=== PATIENT | female | born 1990 | race Caucasian/White ===

== ENCOUNTER 2025-06-04 10:22 | Emergency (ER) | payer OTHER, SELFPAY ==
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
[2025-06-04 10:36] VITALS: BP 152/84; PULSE 88; RESP 18; TEMP 36.1; O2SAT 99; BMI 28.8
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
[2025-06-04 11:42] VITALS: BP 152/84; PULSE 88; RESP 18; TEMP 36.1; O2SAT 99
--- OUTSIDE RECORDS SUMMARY | 2025-06-04 15:29 | XMS_ITS | Clinical Summary ---
Author Organization [facility] Address [address] [place] [phone] Phone Care Team Providers Care Product Marketer Name Role Phone Shannon Hernandez MD Primary Care Prov ider Allergies No known active allergies Medications etonogestrel-elut ing contraceptive device (Nexplanon) 68 mg implant subdermal implant Inject 68 mg into the skin Once. 3 Active olopatadine (PATANOL) 0.1 % ophthalmic solution apply 1 Drop to the eye 2 times daily. 4 Active albuterol HFA (PROAIR HFA ; PROVENTIL HFA ; VENTOLIN HFA) 90 mcg/actuation inhalerIndication s:Seasonal allergies,Routine general medical examination at a health care facility,Encounte r for hepatitis C screening test for low risk patient,Exercise- induced asthma Inhale 2 puffs by mouth every 6 (six) hours if needed for wheezing. 6.7 g 5 Active azelastine (ASTELIN) 137 mcg (0.1 %) nasal sprayIndications: Seasonal allergies Administer 1 spray into each nostril 2 (two) times a day. Use in each nostril as directed 30 mL 5 Active fluticasone propionate (FLONASE) 50 mcg/actuation nasal sprayIndications: Seasonal allergies,Routine general medical examination at a health care facility,Encounte r for hepatitis C screening test for low risk patient,Exercise- induced asthma INSTILL 2 SPRAYS IN EACH NOSTRIL ONCE EVERY DAY; SHAKE GENTLY; BEFORE FIRST USE, PRIME PUMP; AFTER USE, CLEAN TIP 48 g 5 Active mometasone (NASONEX) 50 mcg/actuation nasal spray Administer 2 sprays into each nostril 2 (two) times a day. 51 g 1 5 Active escitalopram (LEXAPRO) 10 mg tablet Take 1 tablet (10 mg total) by mouth 1 (one) time each day. 90 each 3 5 026 Active levocetirizine (Xyzal) 5 mg tablet Take 1 tablet (5 mg total) by mouth 1 (one) time each day in the evening. 90 each 3 5 026 Active omeprazole (PriLOSEC) [address] capsule Take 1 capsule (20 mg total) by mouth 1 (one) time each day. Do not crush or chew. 90 each 3 5 026 Active azithromycin (ZITHROMAX) 250 mg tablet Take 2 tablets (500 mg total) by mouth 1 (one) time each day for 1 day, THEN 1 tablet (250 mg total) 1 (one) time each day for 4 days. 6 each 5 025 Active Problems Problem Noted Date Diagnosed Date Heartburn 04/29/2025 Menstrual migraine, with int ractable migraine, so stated, with status migrainosus 01/28/2022 Attention deficit hyperactiv ity disorder (ADHD), predominantly inattentive type 10/04/2021 LGSIL on Pap smear of cervix 08/29/2019 Overview (03/20/2024): Colpo09/05- JOSHUA 1: Pap 05/2022: LGSIL, ASC-H Colpo 09/08: JOSHUA 2 LEEP 09/30/22: JOSHUA 2 negative margins repeat pap in one year Sprain of ligament of lumbosacral joint 11/08/19 15 Overview (03/20/2024): IMO update Sprain of sacroiliac ligament 11/07/2014 Anxiety 08/07/2014 Asthma, exercise induced 08/07/2014 Encounters Date Type Department Care Team Description 04/29/2025 9:00 AM EST Office Visit [facility] [address] [place] [address] Donald Matthew PA Chronic bilateral low back pain without sciatica (Primary Dx); Anxiety; Asthma, exercise induced; Heartburn 03/10/2025 10:00 AM EDT Office Visit [facility] [address] [place] [address] Donald Matthew PA Right lumbar pain (Primary Dx) 03/07/2025 2:00 PM EDT Telemedicine [facility] [address] [place] [phone] Donald Matthew PA Anxiety and depression (Primary Dx); Premenstrual dysphoria from Last 3 Months Immunizations Immunization Administration Dates Next Due HPV, Quadrivalent 08/06/2009 Hepatitis B (Ujnhzaw-X-Bcfsk , Recombivax HB-Adult) 19yo and older 05/24/2016 Influenza Quadravalent, MDCK , 0.5ml, preservative free (Flucelvax) 6mo and older 04/06/2018 Influenza trivalent, with pr eservative (Fluzone; Afluria) 6mo and older 03/31/2015 Influenza, Unspecified 04/05/2019 Measles 05/24/2016 Moderna SARS-CoV-2 COVID-19, mRNA, LNP-S, preservative free 08/05/2020,07/08/2020 Mumps 05/24/2016 PPD Test 04/12/2017,05/25/2016,05/23/2016 Rubella 05/24/2016 Tdap Tetanus diptheria acell ular pertussis (Boostrix; Adacel) 7yo and older 05/27/2015 Varicella live (Varivax) 12mo and older 05/26/20 16,02/28/2014,03/10/2009 Zoster Live 05/24/2016 Surgical History Surgery Date Site/Laterality Comments APPENDECTOMY PROCEDURE: RI APPENDECTOMY Medical History Medical History Date Comments Tobacco abuse 01/27/2014 DX:Tobacco abuse Family History Medical History Relation Name Comments Diabetes Father Hypertension Father Stroke Maternal Grandfather Lung cancer Maternal Grandmother Hypertension Mother Suicide Attempts Paternal Grandfather Breast cancer Neg Hx Cervical cancer Neg Hx Colon cancer Neg Hx Ovarian cancer Neg Hx Pancreatic cancer Neg Hx Uterine cancer Neg Hx Relation Name Status Comments Father Alive Maternal Grandfather (Age 86) Maternal Grandmother (Age 50s) l gely ca-smoker Mother Alive Paternal Grandfather suicide Paternal Grandmother Alive Sister 1 Alive ovarian cysts Sister 2 Alive Sister 3 Alive Social History Tobacco Use Types Packs/Day Years Used Date Smoking Tobacco: Former Cigarettes 0.5 Q uit: 06/18/2017 Smokeless Tobacco: Never Tobacco Cessation:Counseling Given: Not Answered Alcohol Use Standard Drinks/Week Comments Not Currently 0 (1 standard drink = 0.6 oz pur e alcohol) Housing Instability Answer Date Recorde d Are you worried that in the next 2 months you may not have stable housing? No 12/03/2024 Food Access & Nutrition Answer Date Rec orded Do you have access to a vari ety of food including fruits and vegetables? Yes 12/03/2024 Access to Healthcare Answer Date Record ed Within the last 3 months, ho w many times did you visit the emergency department for your medical care? 0 12/03/2024 Health Literacy Answer Date Recorded How often do you need to hav e someone help you when you read instructions, pamphlets, or other written material from your doctor or pharmacy? Never 12/03/2024 Caregiver: How often do you need to have someone help you when you read instructions, pamphlets, or other written material from your doctor or pharmacy? Not on file 12/03/2024 Financial Risk Answer Date Recorded How hard is it for you to pa y for the very basics like food, housing, medical care, and air conditioning / heating? Not very hard 12/03/2024 Transportation Answer Date Recorded Has the lack of transportati on kept you from meetings, work, or from getting things needed for daily living? No Has the lack of transportati on kept you from medical appointments or from getting medications? No 12/03/2024 Social Isolation Answer Date Recorded How often do you feel lonely or isolated from th ose around you? Never 12/03/2024 Food Risk Answer Date Recorded Within the past 12 months we worried whether our food would run out before we got money to buy more. Never true 12/03/2024 Within the past 12 months th e food we bought just didn't last and we didn't have money to get more. Never true 12/03/2024 Dependent Care Answer Date Recorded Do you need help finding or paying for care for your loved ones. For example, children's program coordinator or elderly care for an older adult? No 12/03/2024 Education Answer Date Recorded Do you think completing more education or training, like finishing a GED, going to college, or learning a trade, would be helpful for you? N/A 12/03/2024 Employment and Income Answer Date Recor ded During the last four weeks, have you been actively looking for work? No 12/03/2024 Living Situation Answer Date Recorded What is your living situation? Unrecognized valu e 12/03/2024 Comments No Sex and Gender Information Value Date Recorded Sex Assigned at Not on file Legal Sex Female 2:21 AM EST Gender Identity Not on file Sexual Orientation Not on file Obstetrics History Para Term AB IAB SAB Ectopic Multiple Livin g Live Births 0 0 0 0 0 0 0 0 Last Filed Vital Signs Vital Sign Reading Time Taken Comments Blood Pressure 133/75 04/29/2025 8:56 AM EST Pulse 104 04/29/2025 8:56 AM EST Temperature 36.7 C (98 F) 03/10/2025 9:57 AM EDT Respiratory Rate 15 11/25/2024 2:17 PM EDT Oxygen Saturation - - Inhaled Oxygen Concentration - - Weight 89.1 kg (196 lb 6.4 oz) 04/29/2025 8:56 A M EST Height 175.3 cm (5' 9 ) 04/29/2025 8:56 AM EST Body Mass Index 29 04/29/2025 8:56 AM EST Plan of Treatment Upcoming Encounters Date Type Department Care Team (Late st Contact Info) Description 11/26/2025 8:30 AM EDT Office Visit [facility] [place] [address] [place] [phone] Donald Matthew PA [address] [place] [address] Health Maintenance Due Date Last Done Comments HPV Vaccines (2 - 3-dose series) 09/03/2009 08/06/2009 Hepatitis B Vaccines (2 of 3 - 19+ 3-dose series) 06/21/2016 05/24/2016 HIV Screening 05/28/2022 COVID-19 Vaccine (3 - 2024-2 6 season) 2025 08/05/2020, 07/08/2020 DTaP,Tdap,and Td Vaccines (2 - Td or Tdap) 05/27/2025 05/27/2015 Social Influencers of Health Screening 12/03/2025 12/03/2024 Cervical Cancer Screening: HPV 11/25/2029 11/25/2024, 06/14/2022 Cholesterol Screening (Lipid Panel) 11/26/2029 11/26/2024, 08/08/2022, 08/26/2019 RSV Immunization Adult Patients (1 - 1-dose 75+ series) 2067 Varicella Vaccines Aged Out 05/26/2016, 02/28/2014, 03/10/2009 No longer eligible based on patient's age to complete this topic Influenza Vaccine Discontinued 04/05/2019, 04/06/2018, 03/31/2015 Hepatitis C Screening Completed 11/26/2024 Depression Screening Completed 12/03/2024 HIB Vaccines Aged Out No longer eligi ble based on patient's age to complete this topic Hepatitis A Vaccines Aged Out No long er eligible based on patient's age to complete this topic IPV Vaccines Aged Out No longer eligi ble based on patient's age to complete this topic MMR Vaccines Aged Out No longer eligi ble based on patient's age to complete this topic Meningococcal ACWY Vaccine Aged Out N o longer eligible based on patient's age to complete this topic Meningococcal B Vaccine Aged Out No l onger eligible based on patient's age to complete this topic Pneumococcal Vaccine: Pediatrics (0 to 5 Years) and At-Risk Patients (6 to 49 Years) Discontinued RSV Immunization Patients Under 20 months Aged Out No longer eligible based on patient's age to complete this topic Procedures Procedure Name Priority Date/Time Associated Diagnosis Comments HEPATITIS C ANTIBODY Routine 11/26/2024 9:26 AM EDT Seasonal allergies Routine general medical examination at a health care facility Encounter for hepatitis C screening test for low risk patient Exercise-induced asthma LIPID PANEL WITH REFLEX TO DIRECT LDL Routine 11/26/2024 9:26 AM EDT Seasonal allergies Routine general medical examination at a health care facility Encounter for hepatitis C screening test for low risk patient Exercise-induced asthma Screening for cardiovascular condition Injury of right foot, initial encounter Screening for diabetes mellitus HPV WITH REFLEX GENOTYPE Routine 11/25/2024 1:47 PM EDT Moderate dysplasia of cervix (JOSHUA II) Encounter for annual routine gynecological examination from Last 3 Months or Most Recently Relevant to Health Maintenance Results * Hepatitis C antibody (11/26/2024 9:26 AM EDT) [facility] Hepatitis C Antibody Negative Negative LAB CHEMISTRY METHOD 11/26/2024 3:[address] [facility] Blood Venous blood specimen / Unknown Venipuncture / Unknown 11/26/2024 9:26 AM EDT 11/26/2024 9:26 AM EDT us April Goodman MD LAB BLOOD ORDERABLES F inal Result [facility] [address] [place] [address], [place] [phone] * Lipid panel with reflex to direct LDL (11/26/2024 9:26 AM EDT) [facility] Cholesterol 124 0 - 200 mg/dL LAB CHEMISTRY METHOD 11/26/2024 1:[address] [facility] Triglycerides 44 0 - 150 mg/dL LAB CHEMISTRY METHOD 11/26/2024 1:[address] [facility] HDL 50 >=40 mg/dL LAB CHEMISTRY METHOD 11/26/2024 1:[address] [facility] LDL Calculated 65 0 - 100 mg/dL LAB CHEMISTRY METHOD 11/26/2024 1:[address] [facility] VLDL Cholesterol Tyrell 8.8 mg/dL LAB CHEMISTRY METHOD 11/26/2024 1:[address] [facility] Non HDL Chol. (LDL+VLDL) 74 <145 mg/dL LAB CHEMISTRY METHOD 11/26/2024 1:[address] [facility] Chol/HDL Ratio 2.5 0.0 - 4.4 LAB CHEMISTRY METHOD 11/26/2024 1:[address] [facility] Blood Venous blood specimen / Unknown Venipuncture / Unknown 11/26/2024 9:26 AM EDT 11/26/2024 9:26 AM EDT April Goodman MD LAB BLOOD ORDERABLES F inal Result [facility] [address] [place] [address], * HPV with reflex genotype (11/25/2024 1:47 PM EDT) HPV Negative Negative LAB MICROBIOLOGY METHOD 11/26/2024 1:[address] [facility] Brushing/Spatula Cervix uteri structure / Unknown 11/25/2024 1:47 PM EDT 11/26/2024 6:50 AM EDT Chino Betts CNM LAB MOLECULAR DIAGNOSTICS MYRON BRAND Final Result Performing Organization Address City/[facility]/ZIP Co de Phone Number [facility] [address] [place] [address], [place] [phone] from Last 3 Months or Most Recently Relevant to Health Maintenance Insurance [facility] Care Teams Product Marketer Relationship Specialty Start Date End Date Shannon Hernandez MD [address] [place] [phone] PCP - General Internal Medicine 07/03/14
== END 2025-06-04 11:43 | disposition home or self-care (01) ==
PROVIDERS: Emergency Provider Emergency Medicine Emergency Medical Services; PCP Internal Medicine
DX: S16.1XXA Strain of muscle, fascia and tendon at neck level, initial encounter (principal); V49.49XA Driver injured in collision with other motor vehicles in traffic accident, initial encounter; Y93.9 Activity, unspecified; Y92.414 Local residential or business street as the place of occurrence of the external cause; R51.9 Headache, unspecified; M54.2 Cervicalgia; M54.6 Pain in thoracic spine
CPT/HCPCS: 72072; 72125; 99282; 99284

== ENCOUNTER → 2025-06-04 10:39 | Outpatient (BNV) | payer SELFPAY | PROVIDERS: Emergency Provider Emergency Medicine Emergency Medical Services; PCP Internal Medicine; Visit Provider Radiology Diagnostic Radiology | DX: M54.2 Cervicalgia (principal); M54.6 Pain in thoracic spine; V89.2XXA Person injured in unspecified motor-vehicle accident, traffic, initial encounter | CPT/HCPCS: 72072; 72125 ==